=== PATIENT | male | born 1955 | race Caucasian/White ===

== ENCOUNTER 2016-12-14 17:57 | Emergency (ER) | payer OTHER ==
[~2016-12-14] VITALS: Ht 175.3 cm; Wt 91.3 kg
[~2016-12-14 17:57] MED LIST: ACET1TAB84 PO; ASCO10003 PO; CALCTAB7 PO; MAGN400T6 PO; MULT-506 PO; OMEG10007 PO
[2016-12-14 18:04] VITALS: Ht 175.3 cm; Wt 91.3 kg
[2016-12-14] MEDS ORDERED: HYDR-5688 PO (18:47)
[2016-12-14] MEDS ORDERED: CIPROFLOXACIN HCL 0.3% OP SOLN 2.5 ML BTL OP ONE (19:15)
[2016-12-14 19:16] VITALS: BP 151/104; PULSE 84; O2SAT 100
--- NOTE | 2016-12-16 11:11 | EMERGENCY ROOM VISIT NOTE ---
ED Visit Note First contact with patient: 18:22 Chief Complaint: Left eye pain. History of Present Illness: Mr. Torres is a 61-year-old white male who ambulates into the ED accompanied by his complaining of left eye. Patient reports approximately 3 hours before he arrived in the ED he was working cutting down trees. 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 He reports before the injury he was not lightheaded or dizzy , the time of the injury he had no loss of consciousness and since the fall he reports he is not having any signs of head injury. Currently he is complaining of left eye pain. He describes his pain as a throbbing and stinging sensation. He rates his discomfort 4/10. His pain is nonradiating. He has not identified any aggravating or alleviating factors related to the pain. He has not taken any medications for pain prior to arrival at the hospital. Associated with his pain he has noted redness over the lateral and inferior portion of the eye. He denies any headache, dizziness , lightheadedness, visual changes, light sensitivity, tearing, neck pain, nausea /vomiting. Review of Systems: As noted above in history of present illness. Past Medical History: Status post appendectomy. Current Medications: Medications Dose Route/Sig Max Daily Dose Days Date Category Dose Instructions Mag-Ox (Magnesium Oxide) 400 Mg Tab 400 Mg PO DAILY 07/25/15 Reported Tylenol Arthritis Ext Rel (Acetaminophen) 650 Mg Cplt 1,300 Mg PO Q8H PRN 03/15/15 Reported Vitamin C (Ascorbic Acid) 1,000 Mg Tab 1,000 Mg PO DAILY 10/18/14 Reported Multivitamin (Multivitamins) Tab 1 Tab PO DAILY 10/18/14 Reported Caltrate 600 Plus (Calcium Carbonate-Vitamin D W/) 1 Tab Tab 1 Tab PO BID 05/06/14 Reported [place]-3 (Fish Oil) 1 Ea Cap 1 Cap PO AMHS 05/06/14 Reported Allergies to Medications: Patient denies. Social History: Patient is not currently employed; he feels safe in his home environment; he admits to tobacco use. Physical Examination: Vital Signs: Date Time Temp Pulse Resp B/P Pulse Ox O2 Delivery O2 Flow Rate FiO2 12/14/16 19:16 84 18 151/104 100 12/14/16 18:04 36.9 84 18 141/84 97 Room Air GENERAL: 61-year-old male in mild distress due to pain, nontoxic-appearing, afebrile and hemodynamically stable. NEUROLOGICAL: Awake, alert and oriented to person, place and time. Answering questions appropriately and following commands. Normal gait. Good hand eye coordination. No focal motor sensory deficits. Cranial nerves II through XII grossly intact. Good short-term and long-term recall. SKIN: Warm, dry and pink. No soft tissue trauma. HEENT: Atraumatic and normocephalic. Face: No bony tenderness, swelling or ecchymosis. PERRLA. EOMI without nystagmus. Left sclera moderate size subconjunctival hemorrhage over the lateral and inferior portion but not extending over the iris. Conjunctiva pink without drainage. No light sensitivity. Funduscopic examination is unremarkable with no signs of increased intracranial pressure. Visual acuity: Right: 20/20 without correction , Left: 20/40 bilaterally without correction. No foreign bodies noted under the eyelids are embedded in the cornea. Anterior chamber is clear. On slitlamp examination with staining there are no corneal abrasions or bodies noted. ED Course: Patient is assessed as noted above. Alcaine was used to anesthetize the eyes for examination. Patient was educated about tonight's findings and instructed on his treatment plan; he verbalizes understanding and agreement with this plan. Clinical Impression: Traumatic left subconjunctival hemorrhage. Disposition: Patient discharged home in stable condition; prior to departure he was reassessed and subjectively reported that he was feeling the same. Plan: Comfort measures were discussed with the patient including use cool compresses, a sliding pain scale of ibuprofen for mild pain and Odd for severe pain, avoidance of NSAID use. Patient was prescribed Ciloxan and instructed on achieves for antibiotic coverage. Patient was educated on signs of head injury. Patient was encouraged to follow-up with manager wireless for recheck. Patient was encouraged return the ED for uncontrolled pain, visual changes, signs of head injury or any new/concerning.
== END 2016-12-14 19:17 | disposition home or self-care (01) ==
LOC: C.EDB 17:59 → C.EDD 19:17
DX: H11.32 Conjunctival hemorrhage, left eye (principal); W22.8XXA Striking against or struck by other objects, initial encounter

== ENCOUNTER 2017-09-01 19:59 | Emergency (ER) | payer OTHER ==
[~2017-09-01] VITALS: Ht 182.9 cm; Wt 88.1 kg
[2017-09-01 20:05] VITALS: Ht 182.9 cm; Wt 88.1 kg
--- NOTE | 2017-09-01 21:07 | DIAGNOSTIC IMAGING REPORT ---
HEAD WITHOUT CONTRAST (CT) CLINICAL HISTORY: 61 years-old Male with head injury 1 wk ago, persistent h/a, neck pain. Acute head injury. Initial exam. TECHNIQUE: Multiple axial CT images of the head were obtained without contrast. A dose lowering technique was utilized adhering to the principles of ALARA. COMPARISON: CT cervical spine of same day. FINDINGS: No acute intracranial hemorrhage, midline shift, mass, large territorial ischemia or abnormal extra-axial collection. The calvarium is intact. The paranasal sinuses, mastoid air cells, and middle ear cavities are clear. IMPRESSION: No acute intracranial abnormality. The above report was generated using voice recognition software. It may contain grammatical, syntax or spelling errors. Electronically signed by: Blue Naylor M.D. 09/01/2017 9:06 PM Dictated Date/Time: 09/01/2017 9:02 PM
--- NOTE | 2017-09-01 21:19 | DIAGNOSTIC IMAGING REPORT ---
CERVICAL SPINE W/O CT DOSE: 943.57 mGy.cm CLINICAL HISTORY: 61 years-old Male with head injury 1 wk ago, persistent h/a, neck pain. Acute neck pain status post trauma. COMPARISON: CT head of same day. TECHNIQUE: Multiple axial CT images of the cervical spine were obtained without contrast. A dose lowering technique was utilized adhering to the principles of ALARA. FINDINGS: Vertebral body heights and alignment are normal. No fracture or subluxation is identifed. Moderate intervertebral disc space narrowing with broad-based posterior disc osteophyte complex that C4-C5. There is mild to moderate intervertebral disc space narrowing at C5-C6 with broad-based posterior disc osteophyte complex. At C4-C5 there is mild left and moderate right foraminal narrowing. At C5-C6 there is mild left and moderate right foraminal narrowing. No high-grade central canal stenosis. Nuchal ligament calcifications are noted. Dystrophic calcifications or remote fracture deformity noted involving the spinous process T1. There is minimal leftward bowing and spurring of nasal septum. The cervical soft tissues appear unremarkable. 4 x 3 mm noncalcified pulmonary nodule of the apical segment right upper lobe is noted on image 520 of series 5. There is mild biapical pleural parenchymal scarring. 3 mm noncalcified pulmonary nodule of the right upper lobe seen on image 547. There is atherosclerosis of the bilateral carotid bulbs. Debris is noted within the left buccal fold. IMPRESSION: 1. No acute cervical spine fracture or subluxation. 2. Intervertebral disc space narrowing with broad-based posterior disc aspect complex formation at C4-C5 and C5-C6 as above resulting in varying degrees of neural foraminal stenosis. No high-grade central canal narrowing. 3. Noncalcified nodules of the right upper lobe are seen measuring up to 4 mm. Follow-up non-emergent chest CT recommended to evaluate for additional pulmonary nodules. The above report was generated using voice recognition software. It may contain grammatical, syntax or spelling errors. Electronically signed by: Blue Naylor M.D. 09/01/2017 9:18 PM Dictated Date/Time: 09/01/2017 9:06 PM
[2017-09-01] MEDS ORDERED: HYDR-5688 PO (21:57)
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
[2017-09-01] MEDS ORDERED: NORCO 5/325MG HOME PACK PO ONE (22:00)
[2017-09-01 22:04] VITALS: BP 135/76; PULSE 54; TEMP 36.6; O2SAT 100
== END 2017-09-01 22:05 | disposition home or self-care (01) ==
LOC: C.EDB 20:00
DX: S09.90XA Unspecified injury of head, initial encounter (principal); W20.8XXA Other cause of strike by thrown, projected or falling object, initial encounter

== ENCOUNTER → 2017-10-22 | Outpatient (CLI) | payer OTHER ==
[~2017-10-22] MED LIST changes: -ACET1TAB84 PO; -ASCO10003 PO; -CALCTAB7 PO; +HYDR-5688 PO; -MAGN400T6 PO; -MULT-506 PO; -OMEG10007 PO
--- NOTE | 2017-10-22 14:44 | DIAGNOSTIC IMAGING REPORT ---
(CHEST) THORAX WITHOUT CLINICAL HISTORY: R91.1 pulmonary nodule COMPARISON STUDY: CT scan of the cervical spine dated 09/01/2017 CT DOSE: 500.83 mGy.cm TECHNIQUE: CT of the thorax was performed from the thoracic inlet to the lung bases. Images are reviewed in the axial, sagittal, and coronal planes. IV contrast was not administered for this examination. A dose lowering technique was utilized adhering to the principles of ALARA. FINDINGS: Thyroid: Imaged portions of the thyroid gland are normal in appearance. Thoracic aorta: The ascending thoracic aorta measures 4 cm. Heart: There are mild coronary artery calcifications present. Lungs and pleural spaces: No pleural effusions are visualized. There is no focal pulmonary consolidation. Within the left lung apex there is a 2.5 mm pleural-based nodule with calcification. This is felt to be post inflammatory. There is a 2 mm left upper lobe noncalcified point nodule as visualized in image #87/346. There is a 2 mm noncalcified pulmonary nodule within the left lower lobe as visualized in image #150/346. There is a 4 x 2 mm nodule along the minor fissure as visualized in image #157/346. There is a 3 mm noncalcified right apical pulmonary nodule as visualized in image #38/346. There is a 3.7 mm solid noncalcified right apical point nodule as visualized in image #28/346. Mediastinum: There is no mediastinal lymphadenopathy. Addie: There is no evidence of pathologic hilar adenopathy given the limitations of a noncontrast study Axilla: There is no evidence of pathologic axillary lymphadenopathy Upper abdomen: There are water density hepatic lesions the largest of which measures 3.9 cm. These statistically represent cysts. There is 11 mm right renal hypodensity likely representing a cyst. Skeletal structures: There are no lytic or blastic osseous lesions. IMPRESSION: 1. No evidence of pathologic adenopathy 2. Tiny bilateral noncalcified solid pulmonary nodules the largest of which measures 4 mm. In a low risk patient, no further follow-up is indicated. In a high risk patient, a 12 month follow-up is optional. Please refer to below summary of Fleischner criteria recommendations for follow-up of incidental CT nodules (Codie Paul, Guidelines for management of small pulmonary nodules detected on CT scans: A statement from the Fleischner Society, Radiology 237: [phone].) SOLID NODULES Solitary nodule size: <6 mm * low risk patients: no follow-up needed * high risk patients: optional CT at 12 months Solitary nodule size: 6-8 mm * low risk patients: follow-up at 6-12 months, then consider further follow-up at 18-24 months * high risk patients: initial follow-up CT at 6-12 months and then at 18-24 months if no change Solitary nodule size: >8 mm * either low or high risk patients - consider follow-up CT at 3 months, and/or CT-PET, and/or biopsy Multiple nodules size: <6 mm * low risk patients: no routine follow-up * high risk patients: optional CT at 12 months Multiple nodules size: 6-8 mm * low risk patients: follow-up at 3-6 months, then consider further follow-up at 18-24 months * high risk patients: follow-up at 3-6 months, then at 18-24 months if no change Multiple nodules size: >8 mm * low risk patients: follow-up at 3-6 months, then consider further follow-up at 18-24 months * high risk patients: follow-up at 3-6 months, then at 18-24 months if no change Note: newly detected indeterminate nodule in persons 35 years of age or older. * low risk patients: minimal or absent history of smoking and/or other known risk factors * high risk patients: history of smoking or of other known risk factors (e.g. first degree relative with lung cancer, or exposure to asbestos, radon, uranium) * if a nodule up to 8 mm is partly solid or is ground glass further follow-up is required after 24 months to exclude possible slow growing adenocarcinoma (JUAN) SUBSOLID NODULES Solitary pure ground-glass nodule * nodule size <6 mm - no CT follow-up required * nodule size >=6 mm - follow-up CT at 6-12 months, then every 2 years until 5 years Solitary part-solid nodule * nodule size <6 mm - no CT follow-up required * nodule size >=6 mm - follow-up CT at 3-6 months. If unchanged, and solid component remains <6 mm, then annual follow-up for 5 years Multiple subsolid nodules * nodule size <6 mm - follow-up CT at 3-6 months, consider further follow-up at 2 and 4 years if stable * nodule size >=6 mm - follow-up CT at 3-6 months, subsequent management based on the most suspicious nodule(s) Electronically signed by: Prince Reyez M.D. 10/22/2017 2:43 PM Dictated Date/Time: 10/22/2017 2:35 PM
== END | disposition home or self-care (01) ==
LOC: C.CTS 13:52
PROVIDERS: ATTEND Internal Medicine Critical Care Medicine
DX: R91.1 Solitary pulmonary nodule (principal)

== ENCOUNTER 2018-03-12 11:14 | Observation (INO) | payer OTHER ==
[~2018-03-12] VITALS: Ht 182.9 cm; Wt 87.7 kg
[2018-03-18 10:51] VITALS: Ht 182.9 cm; Wt 87.7 kg
[2018-03-18 10:58] VITALS: BP 133/86; PULSE 78; TEMP 36.9; O2SAT 100
[2018-03-18] MEDS ORDERED: MAGNESIUM HYDROXIDE SUSP 30 ML UDC PO PRN (11:15)
[2018-03-18] MEDS ORDERED: ACETAMINOPHEN 325 MG TAB PO PRN (11:15)
[2018-03-18] MEDS ORDERED: ONDANSETRON INJ 2 MG/ML 2 ML VIAL IV PRN (11:15)
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
[2018-03-18] MEDS ORDERED: PANTOprazole INJ 40 MG in SYRINGE 0 ML IV ONE (11:30)
[2018-03-18 11:53] LABS: HEMATOCRIT 35.9 % (42-52); HEMOGLOBIN 12.8 g/dL (14.0-18.0)
[2018-03-18] MEDS ORDERED: IV FLUIDS COMPLETED PRN (12:30)
[2018-03-18] MEDS: SODIUM CHLORIDE 0.9% 1000ML 1,000 ML IV SCH ×2 (13:42→20:15)
[2018-03-18 15:45] VITALS: BP 111/69; PULSE 61; TEMP 36.3; O2SAT 100
--- NOTE | 2018-03-18 15:46 | Progress Note ---
Progress Note Date of Service Mar 18, 2018. (Alexandria James ., JAYY) Progress Note Pt was seen and evaluated, chart reviewed. Had OP colonoscopy yesterday w/ Dr. Mccrary. Had a 15 mm polyp in ascending colon removed w/ hot snare and internal hemorrhoids w/ plan for 6 month recall. Tolerated colonoscopy, went home developed generalized abd cramping, nausea, vomiting, diarrhea w/ BRBPR. Called on-call service who suggested ED for symptoms. He presented to [facility] and was transferred to [facility] for GI services if needed. Pt notes that now he feels well. Denies abd pain. No nausea, vomiting. Is having continued BRBPR but notes it is less volume, less often. No rectal pain. Is tolerating clear liquids. Denies fever, chills, CP, SOB No acute distress Abd is soft, non-distended and non-tender ELISA w/ BRB. No evidence of bleeding hemhorroids 62 year old male with abd pain, nausea, vomiting (resolved) and BRBPR following colonoscopy yesterday w/15 mm polyp in ascending colon removed w/ hot snare. Abd exam is benign and his symptoms are improving. 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 His H&H stable but lactic acid elevated. Agree with observation over night Clear liquid as tolerated Trend H&H Repeat lactic acid NPO after midnight. Please call with any acute changes, questions or concerns. (Alexandria James ., JAYY) Attg add: I interviewed and examined pt, reviewed chart and labs. Pt with bleedin gpost polypecomty, continues to pass small amts BRB. On exam, he has large non bleeding hemorrhoids. his abd is soft. His bleeding at present seems more like outlet bleed, although I cannot r.o proximal source. Cont to follow hgb o.n. (Ariana Bowling M.D.)
[2018-03-18] MEDS: PANTOprazole SOD 40 MG TAB PO SCH (20:16)
[2018-03-18 23:30] VITALS: BP 129/81; PULSE 60; TEMP 36.5; O2SAT 100
[2018-03-19] MEDS: SODIUM CHLORIDE 0.9% 1000ML 1,000 ML IV SCH ×2 (04:17→11:49)
[2018-03-19 06:43] LABS: HEMATOCRIT 27.5 % (42-52); HEMOGLOBIN 9.6 g/dL (14.0-18.0)
[2018-03-19 07:39] VITALS: BP 122/71; PULSE 66; TEMP 36.5; O2SAT 100
[2018-03-19] MEDS: PANTOprazole SOD 40 MG TAB PO SCH (07:42)
--- NOTE | 2018-03-19 09:57 | Progress Note ---
Progress Note Date of Service Mar 19, 2018. Progress Note Pt was seen and evaluate, chart reviewed. No acute events noted overnight. Feels well, wants to go home. Tells me since he was evaluated last evening during GI rounds that he has not had any evidence of GI bleeding. Denies any BM. Has been passing gas. No abd pain. No nausea, vomiting. No fever, chills, CP , SOB No acute distress Abd is soft, non-distended and non-tender Lungs CTA Heart RRR 62 year old male with abd pain, nausea, vomiting (resolved) and BRBPR following colonoscopy yesterday w/15 mm polyp in ascending colon removed w/ hot snare. Abd exam is benign and his symptoms are improving. 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 His H&H stable but lactic acid elevated. Repeat lactic acid normal. Has not had any rectal bleeding since GI rounds yesterday afternoon. - Agree w/ OP evaluation of coagulopathy - notes his son had a bleeding disorder - GI to sign off, please call with any acute changes, questions or concerns.
[2018-03-19 10:08] LABS: HEMATOCRIT 29.4 % (42-52); HEMOGLOBIN 10.3 g/dL (14.0-18.0)
--- NOTE | 2018-03-19 12:20 | Discharge Instructions ---
Discharge Instructions Date of Service Mar 19, 2018. Admission Reason for Admission: Rectal Bleeding Discharge Discharge Diagnosis / Problem: Rectal bleeding Discharge Goals Goal(s): Diagnostic testing Activity Recommendations Activity Limitations: per Instructions/Follow-up section Exercise/Sports Limitations: none May Resume Sexual Activity: when tolerated Shower/Bathe: no limitations Driving or Machine Use: no limitations . Instructions / Follow-Up Instructions / Follow-Up You were admitted to the hospital for evaluation of your rectal bleeding, which has improved. It is important to keep your stools soft the next few days to let the area which was bleeding it heal. Imagine a scab over the area, and keeping your stool soft will help keep that scab in place and prevent further bleeding. We recommend using Miralax (Polyethylene Glycol - 1 pack mixed into water or juice) daily, and if needed you can use Senna 1-2 tab daily as well. If you notice any worsening of bleeding, or you become dizzy with standing, feel like you may faint, or have chest pain or shortness of breath, please seek medical attention. Follow up with your PCP within the week. Current Hospital Diet Patient's current hospital diet: Clear Liquid Diet Discharge Diet Recommended Diet: Regular Diet Pending Studies Studies pending at discharge: no Medical Emergencies . Who to Call and When: Medical Emergencies: If at any time you feel your situation is an emergency, please call 911 immediately. . Non-Emergent Contact Non-Emergency issues call your: Primary Care Provider, Bioinformatics Software Engineer . . "Provider Documentation" section prepared by Jocelin Cueva. .
[2018-03-19 13:02] VITALS: BP 122/71; PULSE 66; TEMP 36.5; O2SAT 100
--- NOTE | 2018-03-19 16:06 | Discharge Summary ---
Discharge Summary Date of Service Mar 19, 2018. Discharge Summary Admission Date: Mar 12, 2018 at 11:14 Discharge Date: Mar 19, 2018 Discharge Disposition: Home Principal Diagnosis: Rectal bleeding Consultations: GI, no procedures performed Discharge Exam Review of Systems: Constitutional: No fever, No chills, No sweats, No weight loss, No weakness Eyes: No worsening of vision ENT: No hearing loss, No unusual epistaxis, No sore throat Respiratory: No cough, No sputum, No wheezing, No shortness of breath, No dyspnea on exertion Cardiovascular: No chest pain, No orthopnea Abdomen: + GI bleeding (rectal bleeding resolved, hx per HPI), No pain, No nausea, No vomiting, No diarrhea, No constipation Musculoskeletal: No joint pain, No swelling Genitourinary - Male: No hematuria, No dysuria, No urinary frequency Neurologic: No memory loss, No paralysis Psychiatric: No depression symptoms Endocrine: No fatigue Hematologic / Lymphatic: No abnormal bleeding/bruising, No clotting problems Integumentary: No rash Physical Exam: General Appearance: WD/WN, no apparent distress Eyes: normal inspection, PERRL ENT: hearing grossly normal, TMs normal Neck: supple, no JVD Respiratory/Chest: lungs clear Cardiovascular: regular rate, rhythm, no murmur, normal peripheral pulses Abdomen / GI: normal bowel sounds, non tender, soft Extremities: no calf tenderness, no pedal edema Neurologic/Psychiatric: alert, normal mood/affect, oriented x 3 Skin: no rash Hospital Course HPI per admitting provider: 62 y/o M who was transferred from [place] ED for GIB. Pt had a colonoscopy yesterday. A polyp was removed and internal hemorrhoids were noted. The c- scope was unremarkable otherwise. He ate dinner and went to bed. He woke up around 10p with lower abd pain and began passing large amounts of blood per rectum. There was no stool present. The blood was liquid and clots mixed. He did not have rectal pain with this. He also became nauseated and had several episodes of emesis with this, but no blood in the emesis. He states his last emesis was around 1am. The last time he passed blood was around 12midnight. He did not pass any blood in the ED at [place]. At this point, he feels fine and is hungry. He has had no further abd pain. He has some rectal soreness post procedure, but not anything that he did not expect. Pt denies fever, SOB, chest pain, LE pain or swelling. Pt states he c-scope was a follow up. He had a scope about 3 years ago with polyp removal and was supposed to have a f/u 6 months later. He did not have that scope done and so this was done as a f/u. Pt has had scant bleeding in the past related to hemorrhoids, however no jono bleeding or dx of GIB. Pt takes vitamins and supplements, but had not done so for some time prior to the c- scope yesterday. He does not take any prescribed meds. HOSPITAL COURSE: Bright red blood per rectum - Hemoglobin trended and stable during admission. Did not require transfusion, bleeding resolved. - Was reviewed by GI during admission - likely post polypectomy bleeding. Lactic acid - Mildly elevated on arrival, 2.4, repeat decreased to 1 Follow up - Within a week, recommend rechecking an H&H - Would consider outpatient coagulopathy workup - per pts fiancee he has bled a lot with dental procedures in the past - Discharged home 03/19/18 in good condition Resident Physician Supervision Note: I interviewed and examined the patient. Discussed with Dr. Cueva and agree with findings and plan as documented in the note. Any exceptions or clarifications are listed here: None Documented By: Jonathan Romero feeling good no further bleeding not lightheaded wants to go home vitals noted nad breathing unlabored no pallor or icterus GI bleeding w acute blood loss anemia - now stable - OK to go home - outpt f/u as above Total Time Spent: Greater than 30 minutes This includes examination of the patient, discharge planning, medication reconciliation, and communication with other providers. Discharge Instructions Please refer to the electronic Patient Visit Report (Discharge Instructions) for additional information. Additional Copies To Carey Wyatt,
== END 2018-03-19 14:45 | disposition home or self-care (01) ==
LOC: C.MSN 11:14 → INTOOBSV 03-18 10:38 → UNDOADMOB 03-18 10:38 → C.MSN 03-18 10:38
PROVIDERS: ADMIT Internal Medicine; ATTEND Family Medicine
DX: K62.5 Hemorrhage of anus and rectum (principal); F17.200 Nicotine dependence, unspecified, uncomplicated; Z90.89 Acquired absence of other organs

== ENCOUNTER → 2018-03-28 | Outpatient (CLI) | payer OTHER ==
[2018-03-28 13:44] LABS: BASO % 1.2 %; BASO ABS # 0.05 K/uL (0-0.2); EOS % 3.4 %; EOS ABS # 0.14 K/uL (0-0.5); HEMATOCRIT 34.2 % (42-52); HEMOGLOBIN 11.8 g/dL (14.0-18.0); IG# 0.01 K/uL (0.00-0.02); LYMPH % 24.5 %; LYMPH ABS # 1.01 K/uL (1.2-3.4); MEAN CELL VOLUME 85.9 fL (80-100); MEAN CORPUSCULAR HEMOGLOBIN 29.6 pg (25-34); MEAN CORPUSCULAR HGB CONC 34.5 g/dl (32-36); MEAN PLATELET VOLUME 9.2 fL (7.4-10.4); MONO % 8.5 %; MONO ABS # 0.35 K/uL (0.11-0.59); NEUT % 62.2 %; NEUT ABS # 2.57 K/uL (1.4-6.5); PLATELET COUNT 232 K/uL (130-400); RED CELL DISTRIBUTION WIDTH CV 13.8 % (11.5-14.5); RED CELL DISTRIBUTION WIDTH SD 42.6 fL (36.4-46.3); WHITE BLOOD COUNT 4.13 K/uL (4.8-10.8)
[2018-03-28 14:56] LABS: ALBUMIN 3.9 gm/dl (3.4-5.0); ALT/SGPT 22 U/L (12-78); AST/SGOT 17 U/L (15-37); BLOOD UREA NITROGEN 15 mg/dl (7-18); CALCIUM 8.9 mg/dl (8.5-10.1); CARBON DIOXIDE 26 mmol/L (21-32); CHOLESTEROL 160 mg/dl (0-200); CREATININE 1.15 mg/dl (0.60-1.40); GLUCOSE 91 mg/dl (70-99); POTASSIUM 4.1 mmol/L (3.5-5.1); SODIUM 139 mmol/L (136-145)
[2018-03-28 15:06] LABS: ALKALINE PHOSPHATASE 75 U/L (45-117); LDL CHOLESTEROL CALCULATED 88 mg/dl; TOTAL PROTEIN 6.9 gm/dl (6.4-8.2)
== END | disposition home or self-care (01) ==
LOC: C.LABPBG 09:00
PROVIDERS: ATTEND Physician Assistant
DX: Z00.00 Encounter for general adult medical examination without abnormal findings (principal); K62.5 Hemorrhage of anus and rectum